=== PATIENT | male | born 2000 ===

== ENCOUNTER 2019-10-06 10:00 | Emergency (ER) | payer BC, OTHER ==
[2019-10-06] MEDS ORDERED: Zofran 4 MG/2 ML VIAL IV ONE (10:19)
[2019-10-06] MEDS ORDERED: Sodium Chloride 0.9% 1000 ML 1,000 ML IV STA (10:19)
[2019-10-06] MEDS ORDERED: MORPHINE SULFATE 2 MG INJ IV ONE (10:19)
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
[2019-10-06] MEDS ORDERED: Zofran 4 MG/2 ML VIAL ONE (10:30)
[2019-10-06] MEDS ORDERED: MORPHINE SULFATE 2 MG INJ ONE (10:31)
[2019-10-06] MEDS ORDERED: Sodium Chloride 0.9% 1000 ML 1,000 ML ONE (10:31)
[2019-10-06 10:38] LABS: Absolute Neutrophil Ct (ANC) 4.67 (1.4-6.9); BASOPHIL % 0.3 % (0.0-0.4); Basophil (Absolute #) 0.02 (0-0.4); Eosinophil % 1.1 % (0.00-5.0); Eosinophil (Absolute #) 0.07 (0-0.5); Hemoglobin 14.7 gm/dl (12.5-18.0); Lymphocyte (Absolute #) 1.03 (1.0-4.6); Lymphocytes % 16.5 % (24.0-44.0); Mean Cell Volume 91.5 fl (78-100); Mean Corpuscular Hemoglobin 30.6 pg (26-32); Mean Corpuscular Hgb Concent. 33.4 g/dl (32-36); Mean Platelet Volume 10.9 fl (6-9.5); Monocyte (Absolute #) 0.44 (0.0-1.3); Monocytes % 7.1 % (0.0-12.0); Platelet Count 159 K/mm3 (150-450); Red Blood Count 4.81 M/mm3 (4.1-5.6); Red Cell Distribution Width 12.8 % (11.5-14.0); White Blood Count 6.2 K/mm3 (4.0-10.5)
[2019-10-06 10:55] LABS: ALBUMIN 4.1 g/dL (3.5-5.0); ALKALINE PHOSPHATASE 44 U/L (38-126); ANION GAP 8.5 MEQ/L (5-15); BLOOD UREA NITROGEN 13 mg/dL (9-20); CHLORIDE 106 mmol/L (98-107); Calcium 9.2 mg/dL (8.4-10.2); Carbon Dioxide 31 mmol/L (22-30); Creatinine 1 0.72 mg/dL (0.66-1.25); Glucose 97 mg/dL (74-106); LIPASE 38 U/L (23-300); Potassium 4.2 mmol/L (3.5-5.1); SGOT/AST 29 U/L (17-59); SGPT/ALT 20 U/L (0-50); SODIUM 141 mmol/L (137-145)
[2019-10-06 11:10] VITALS: O2SAT 99
--- NOTE | 2019-10-06 11:20 | XRAY ---
Indication: Left lower abdomen pain. Nausea and vomiting. History Crohn's. Multiple contiguous axial images obtained through the abdomen and pelvis using 80 cc Isovue 370 contrast only. Comparison: None Lung bases are clear. Heart is not enlarged. Noncontrasted stomach and bowel loops appear nonobstructed. Normal appendix. Intact left lower quadrant bowel resection. No free fluid/air. Remaining liver, gallbladder, pancreas, spleen, adrenal glands, kidneys, ureters, bladder, and aorta appear unremarkable. No pathologic retroperitoneal lymphadenopathy. Osseous structures intact. Impression: Negative CT abdomen/pelvis with contrast exam. CTDI 3.19
[2019-10-06 11:31] LABS: Appearance CLEAR (CLEAR); Bilirubin NEGATIVE (NEGATIVE); Blood NEGATIVE Ery/ul (0-5); Glucose NEGATIVE (NEGATIVE); Ketones NEGATIVE (NEGATIVE); Leukocyte Esterase NEGATIVE (NEGATIVE); Mucus SLIGHT /HPF (NEGATIVE); Nitrite NEGATIVE (NEGATIVE); Protein,Urine Dip NEGATIVE (Negative); Specific Gravity 1.054 (1.005-1.025); Urobilinogen NEGATIVE mg/dL (0-1)
[2019-10-06 11:32] LABS: Bacteria RARE /HPF (NEGATIVE); Epithelial Cells RARE /HPF (FEW)
[2019-10-06 11:42] LABS: Amphetamine,Urine NEGATIVE (NEGATIVE); Barbiturate,Urine NEGATIVE (NEGATIVE); Benzodiazepine,Urine NEGATIVE (NEGATIVE); Cocaine,Urine NEGATIVE (NEGATIVE); Methadone,Urine NEGATIVE (NEGATIVE); Opiate,Urine POSITIVE (NEGATIVE); PCP,Urine NEGATIVE (NEGATIVE); THC,Urine POSITIVE (NEGATIVE)
[2019-10-06] MEDS ORDERED: solu-MEDROL 125 MG IV ONE (11:57)
[2019-10-06] MEDS ORDERED: solu-MEDROL 125 MG ONE (11:59)
[2019-10-06 12:19] VITALS: BP 110/61; PULSE 60
== END 2019-10-06 12:28 | disposition home or self-care (01) ==
LOC: ED 10:00
DX: R11.10 Vomiting, unspecified (principal); R19.7 Diarrhea, unspecified; R10.9 Unspecified abdominal pain
CPT/HCPCS: 36000; 36415; 74177; 80053; 80307; 81001; 83690; 85025; 96374; 96375; 99284; J2270; J2405; J2930